=== PATIENT | male | born 1985 | race Caucasian/White ===

== ENCOUNTER 2019-12-08 15:11 | Outpatient (CLI) | payer OTHER, SELFPAY ==
--- NOTE | ~2019-12-08 | US_ITS ---
EXAMINATION: US scrotum doppler DATE: 12/08/2019 16:16 INDICATION: Right testicular pain. TECHNIQUE: Grayscale and Doppler ultrasound images of the testes were obtained. COMPARISON: None. FINDINGS: The right testis measures 5.0 x 2.2 x 3.4 cm. The left testis measures 5.2 x 2.3 x 3.0 cm. There is normal vascular flow to both testes. The right epididymis demonstrates a 6 mm cyst. There is normal vascular flow in right epididymis. The left epididymis is normal. There is no hydrocele. Ther e is a left-sided varicocele. IMPRESSION: 1. No etiology for the patient's symptoms. Reviewed, dictated and finalized at location A.
== END 2019-12-08 15:12 | disposition home or self-care (01) ==
PROVIDERS: PCP Internal Medicine; Visit Provider Internal Medicine
DX: N50.811 Right testicular pain (principal)
CPT/HCPCS: 76870; 93976

== ENCOUNTER 2020-10-14 11:52 | Emergency (ER) | payer OTHER, SELFPAY ==
--- NOTE | ~2020-10-14 | XR_ITS ---
EXAMINATION: XR chest 1V INDICATION: Chest tightness with inspiration TECHNIQUE: Frontal view of the chest is obtained 1212 hours COMPARISON: 08/29/2018 FINDINGS: The lungs are free of acute opacities. There is no pleural effusion or pneumothorax. The ca rdiomediastinal silhouette is normal. IMPRESSION: 1. No acute cardiopulmonary abnormality. Reviewed, dictated and finalized at location B.
[2020-10-14 11:55] VITALS: BP 152/96; PULSE 115; RESP 20; TEMP 37.2; O2SAT 100
[2020-10-14 12:18] VITALS: O2SAT 98
--- NOTE | 2020-10-14 12:42 | ECG_ITS ---
Measurements Intervals [place] Rate: 94 P: 30 AR: 153 QRS: 1 QRSD: 97 T: 19 QT: 344 QTc: 431 Interpretive Statements SINUS RHYTHM EARLY PRECORDIAL R/S TRANSITION BASELINE ARTIFACT- II, III, AVR, AVL, AVF, V2-V6 BORDERLINE ECG Electronically Signed On 10-14-2020 13:07:18 CDT by Juan Antonio Carreno D.O.
[2020-10-14 13:54] LABS: Basophils Percent Auto 0.3 % (0.2-1.2); Eosinophils Percent Auto 0.6 % (0-4.4); Immature Granulocyte Absolute 0.01 K/mm3 (0.00-0.031); Immature Granulocyte Percent A 0.3 % (0-0.5); Immature Platelet Fraction Pct 8.3 % (0.9-11.2); Lymphocytes Absolute Auto 1.18 K/mm3 (0.9-3.2); Lymphocytes Percent Auto 33.1 % (18.3-44.2); Mean Corpuscular HGB Conc 34.8 g/dl (32-36); Mean Corpuscular Hemoglobin 31.2 pg (26-34); Mean Corpuscular Volume 89.7 fl (80-100); Mean Platelet Volume 10.9 fl (7.4-10.4); Monocytes Absolute Auto 0.5 K/mm3 (0.1-0.6); Neutrophils Absolute Auto 1.9 K/mm3 (1.3-6.7); Neutrophils Percent Auto 51.7 % (45.5-73.1); Platelet Count Result 139 k/mm3 (150-375); Red Blood Count 5.13 M/mm3 (4.6-6.20); Red Cell Distribution Width 12.2 % (11.5-14.5); White Blood Count 3.6 K/mm3 (4.5-10.0)
[2020-10-14 14:02] VITALS: BP 134/99; PULSE 94; RESP 32
[2020-10-14 14:04] LABS: Alanine Aminotransferase 73 U/L (4-50); Albumin Level 4.4 g/dL (3.5-5.1); Alkaline Phosphatase 85 U/L (38-126); Anion Gap 7 mmol/L (8-16); Aspartate Amino Transferase 62 U/L (17-59); Bilirubin,Total 0.5 mg/dL (0.2-1.3); Blood Urea Nitrogen 13 mg/dL (9-20); Calcium 8.9 mg/dL (8.4-10.2); Carbon Dioxide 27 mmol/L (22-30); Chloride 103 mmol/L (98-107); D Dimer 0.31 ug/mL (<0.48); Estimated CRCL calculation 160 ml/min; Estimated Glomerular Filt Rate > 60; Glucose 92 mg/dL (65-110); Potassium 3.7 mmol/L (3.4-5.0); Sodium 137 mmol/L (137-145)
[2020-10-14 14:05] VITALS: BP 136/99; PULSE 92; RESP 17; O2SAT 99
[2020-10-14 14:16] LABS: Troponin I < 0.012 ng/mL (0.000-0.034)
--- NOTE | 2020-10-14 14:30 | ED.GENADULT ---
HPI - General Adult General Chief complaint: Shortness of Breath/Dyspnea Stated complaint: covid symptoms Time Seen by Provider: 10/14/20 12:29 Source: patient and RN notes reviewed Mode of arrival: ambulatory Limitations: no limitations History of Present Illness HPI narrative: Patient 34 years old white male presents to the ED with chest tightness with breathing. Noticed 2 days ago, yesterday lost the sense of smell and taste. Patient denies any headache, fever, chills, runny nose, nasal congestion, body aches, exposure to anybody known to have COVID-19. Patient not been vaccinated for Covid. Patient denies any coughing. Related Data Allergies Allergy/AdvReac Type Severity Reaction Status Date / Time No Known Allergies Allergy Unverified 08/29/18 11:42 Review of Systems Review of Systems: Narrative: CONSTITUTIONAL: Denies fever, chills, or sweats. EYES: Denies visual changes, redness, or discharge. ENT: Denies rhinorrhea, congestion, sore throat, or otalgia. CARDIOVASCULAR: Denies chest pain, palpitations, or edema. RESPIRATORY: Denies cough or dyspnea. GASTROINTESTINAL: Denies abdominal pain, nausea, vomiting, or diarrhea. GENITOURINARY: Denies dysuria or hematuria. SKIN: Denies rash or itching. MUSCULOSKELETAL: Denies back pain, joint pain, or myalgia. NEUROLOGIC: Denies headache, numbness, or weakness. PSYCHIATRIC: Denies anxiety or depression. PMFSH Social History Social History Gender identity (if verbalized by the patient): Male Exam Narrative: Exam Narrative: General appearance: Well-developed, well-nourished Skin: Normal color Head: Normocephalic, nontraumatic Eyes: Clear conjunctiva ENT: Oropharynx normal, ears normal, nose normal Neck: Supple, nontender Chest and respiratory: Airway patent, no respiratory distress, no accessory muscle use Heart: Regular rate/rhythm Abdomen: Soft, nontender, no organomegaly, quiet bowel sounds Vascular: Normal peripheral pulses, normal capillary refill. Musculoskeletal: Normal range of motion, nontender back Neurologic: Alert and oriented ?3, PORTER SAMPLE CASE is normal as tested, no gross motor deficit Course Course Emergency Course: Stable Vital Signs Vital signs: Vital Signs Temperature 37.2 C 10/14/20 11:55 Pulse Rate 115 H 10/14/20 11:55 Respiratory Rate 20 10/14/20 11:55 Blood Pressure 152/96 H 10/14/20 11:55 Pulse Oximetry 100 10/14/20 11:55 Temperature 37.2 C 10/14/20 11:55 Pulse Rate 92 10/14/20 14:05 Respiratory Rate 17 10/14/20 14:05 Blood Pressure 136/99 H 10/14/20 14:05 Pulse Oximetry 99 10/14/20 14:05 Medical Decision Making MDM Narrative Medical decision making narrative: Patient presents with dyspnea, loss of taste and smell. Covid is a possibility, Labs, chest x-ray, D-dimer ordered. Blood work-up did not show any significant finding except leukopenia which high likely viral related. Patient will be tested for Covid, advised to be isolated at home until he get the Covid result. Differential Diagnosis Differential Diagnosis: Covid infection, pneumonia, pulmonary embolism, stress related symptoms Vital Signs Vital Signs: Vital Signs Temperature 37.2 C 10/14/20 11:55 Pulse Rate 115 H 10/14/20 11:55 Respiratory Rate 20 10/14/20 11:55 Blood Pressure 152/96 H 10/14/20 11:55 Pulse Oximetry 100 10/14/20 11:55 Temperature 37.2 C 10/14/20 11:55 Pulse Rate 92 10/14/20 14:05 Respiratory Rate 17 10/14/20 14:05 Blood Pressure 136/99 H 10/14/20 14:05 Pulse Oximetry 99 10/14/20 14:05 Lab Data Result diagrams: 10/14/20 13:34 10/14/20 13:34
[2020-10-14 14:45] VITALS: BP 145/105; PULSE 99; RESP 18; O2SAT 100
[2020-10-15 16:43] LABS: SARS-CoV-2 RNA PCR Positive
== END 2020-10-14 14:51 | disposition home or self-care (01) ==
PROVIDERS: Emergency Provider Emergency Medicine; PCP Internal Medicine
DX: U07.1 COVID-19 (principal); R43.0 Anosmia; R06.00 Dyspnea, unspecified; R94.31 Abnormal electrocardiogram [ECG] [EKG]
CPT/HCPCS: 36415; 71045; 80053; 84484; 85025; 85055; 85380; 93005; 99284; C9803; U0003; U0005